=== PATIENT | female | born 1975 ===

== ENCOUNTER 2021-05-04 14:24 | Emergency (ER) | payer MEDICARE, MEDICAID, SELFPAY ==
[2021-05-04 14:37] VITALS: BP 102/78; PULSE 83; RESP 16; TEMP 36.5; O2SAT 100
--- NOTE | 2021-05-04 15:35 | PC.NURSE ---
patient states wait is too long and left
== END 2021-05-05 05:12 | disposition left against medical advice (07) ==
PROVIDERS: PCP Physician Assistant
DX: Z20.2 Contact with and (suspected) exposure to infections with a predominantly sexual mode of transmission (principal)
CPT/HCPCS: 99199